=== PATIENT | female | born 1930 | race Caucasian/White ===

== ENCOUNTER 2017-01-29 07:24 | Emergency (ER) | payer MEDICARE ==
[~2017-01-29] VITALS: Ht 162.6 cm; Wt 40.0 kg
[2017-01-29 08:06] LABS: HEMATOCRIT 40.6 % (37.0-47.0); HEMOGLOBIN 13.2 g/dl (12.0-16.0); IMMATURE GRANULOCYTES 0.6 % (0.0-1.0); MEAN CELL VOLUME 95.3 fL CALC (80.0-100.0); MEAN CORPUSCULAR HGB CONC 32.5 g/L CALC (32.0-36.0); NEUT# 15.08 thou/uL (2.00-7.15); RED BLOOD COUNT 4.26 mill/uL (4.20-5.60); RED CELL DISTRI WIDTH 12.3 % (11.5-15.5)
[2017-01-29 08:21] LABS: URINE BILIRUBIN - DIPSTICK NEGATIVE (NEGATIVE); URINE BLOOD DIPSTICK LARGE (NEGATIVE); URINE CLARITY SLIGHT CLOUDY; URINE COLOR YELLOW; URINE GLUCOSE - DIPSTICK NEGATIVE (NEGATIVE); URINE KETONE 40 mg/dL (NEGATIVE); URINE LEUK ESTERASE NEGATIVE (NEGATIVE); URINE NITRITE - DIPSTICK POSITIVE (Negative); URINE PH 5.5 (4.5-8.0); URINE PROTEIN - DIPSTICK >=300 mg/dL (NEG-TRACE); URINE SPECIFIC GRAVITY >=1.030; URINE UROBILINOGEN - DIPSTICK 0.2 E.U./dL (0.2)
[2017-01-29 08:22] LABS: ANION GAP 20 (6-22 (CALC)); BUN 29 mg/dL (8-23); BUN/CREATININE RATIO 31 (12-20 (CALC)); CALCIUM 8.8 mg/dL (8.4-10.2); CARBON DIOXIDE 24 mmol/l (22-30); CHLORIDE 106 mmol/l (95-108); CREATININE 0.9 mg/dL (0.5-1.0); GFR 60 ML/MIN (>=60 (CALC)); GFR FOR AFR.AMER. > 60 ML/MIN (>=60 (CALC)); GLUCOSE 84 mg/dL (82-115); SODIUM 145 mmol/l (137-146)
[2017-01-29 08:31] LABS: URINE BACTERIA MANY hpf
[2017-01-29 08:32] LABS: URINE RBC 50-100 RBC/hpf (0-5); URINE TRANSITIONAL EPI. CELLS FEW hpf
[2017-01-29 08:57] LABS: INTERNATIONAL NORMALIZED RATIO 1.1 RATIO (0.7-1.3); PROTHROMBIN TIME 11.7 SECONDS (9.0-12.5)
[2017-01-29 11:39] VITALS: BP 205/93
== END 2017-01-29 11:39 | disposition short-term general hospital (02) ==
LOC: ED 07:24
PROVIDERS: Family Medicine
DX: A41.9 Sepsis, unspecified organism (principal); R65.20 Severe sepsis without septic shock; I21.4 Non-ST elevation (NSTEMI) myocardial infarction; N39.0 Urinary tract infection, site not specified; F03.90 Unspecified dementia, unspecified severity, without behavioral disturbance, psychotic disturbance, mood disturbance, and anxiety; B96.20 Unspecified Escherichia coli [E. coli] as the cause of diseases classified elsewhere
CPT/HCPCS: J0692